=== PATIENT | male | born 1960 | race African-American/Black ===

== ENCOUNTER 2016-08-17 10:20 | Emergency (ER) | payer OTHER ==
[~2016-08-17] VITALS: Ht 182.9 cm; Wt 122.5 kg
[2016-08-17 10:29] VITALS: BP 169/105
[2016-08-17] MEDS ORDERED: TRAM-29 PO (11:14)
[2016-08-17] MEDS ORDERED: AMOX500C PO (11:14)
--- NOTE | 2016-08-17 11:14 | PHYS DOC ---
Past Medical History Past Medical History: Hypertension Past Surgical History: No Surgical History Additional Information: 1.5 PACK/DAY Alcohol Use: Occasionally Drug Use: None Adult General Chief Complaint Chief Complaint: DENTAL PROBLEM HPI HPI Patient is a 56 year old male presents emergency department stating that he has having dental pain on the left lower jaw. He states his been having this pain for the last 3 days. He denies any fever, chills or any nausea vomiting patient states he does not have a dentist and would like to have a referral sheet. Patient denies any drainage or discharge from the area. He does have swelling noted in his left lower jaw area. Review of Systems Review of Systems Constitutional: Denies fever or chills [] Eyes: Denies change in visual acuity, redness, or eye pain [] HENT: Denies nasal congestion or sore throat [] Respiratory: Denies cough or shortness of breath [] Cardiovascular: No additional information not addressed in HPI [] GI: Denies abdominal pain, nausea, vomiting, bloody stools or diarrhea [] : Denies dysuria or hematuria [] Musculoskeletal: Denies back pain or joint pain [] Integument: Denies rash or skin lesions [] Neurologic: Denies headache, focal weakness or sensory changes [] Endocrine: Denies polyuria or polydipsia [] Allergies Allergies Allergies Coded Allergies Type Severity Reaction Last Updated Verified No Known Drug Allergies 08/17/16 No Physical Exam Physical Exam Constitutional: Well developed, well nourished, no acute distress, non-toxic appearance. [] HENT: Normocephalic, atraumatic, bilateral external ears normal, oropharynx moist, no oral exudates, nose normal. Bilateral tympanic membranes appear to be normal. Patient with #18 tooth has abscess noted around the area. Eyes: PERRLA, EOMI, conjunctiva normal, no discharge. [] Neck: Normal range of motion, no tenderness, supple, no stridor. [] Cardiovascular:Heart rate regular rhythm, no murmur [] Lungs & Thorax: Bilateral breath sounds clear to auscultation [] Skin: Warm, dry, no erythema, no rash. [] Back: No tenderness Extremities: No tenderness, no cyanosis, no clubbing, ROM intact, no edema. [] Neurologic: Alert and oriented X 3, normal motor function, normal sensory function, no focal deficits noted. [] Psychologic: Affect normal, judgement normal, mood normal. [] Current Patient Data Vital Signs Vital Signs Date Time Temp Pulse Resp B/P (MAP) Pulse Ox O2 Delivery O2 Flow Rate FiO2 08/17/16 10:29 98.9 73 20 99 Room Air 98.9 EKG EKG [] Radiology/Procedures Radiology/Procedures [] Course & Med Decision Making Course & Med Decision Making Pertinent Labs and Imaging studies reviewed. (See chart for details) Dental abscess lanced with #18 needle. Patient noted with some thin yellow drainage coming from the site. Patient will be placed on amoxicillin with Ultram. Patient was instructed to follow-up with the dentist within the next week. Signs and symptoms to return back to emergency department as been provided. Patient agrees with discharge instructions treatment regimens and follow-up recommendations. Patient will be provided with Ultram in which she was state will cause drowsiness do not take any be alert and oriented. Also recommended continuing ibuprofen 800 mg every 8 hours with food. Stop taking few develop an upset stomach. [] Dragon Disclaimer Dragon Disclaimer This electronic medical record was generated, in whole or in part, using a voice recognition dictation system. Departure Departure Impression: Primary Impression: Dental abscess Disposition: 01 HOME, SELF-CARE Condition: STABLE Referrals: NON,STAFF (PCP) Patient Instructions: Dental Abscess Additional Instructions: Activity as tolerated Medication as provided Warm salt water mouth rinses 4 times a day and prior to bedtime Ultram will cause drowsiness do not take if you need to be alert and oriented Continue with ibuprofen 800 mg every 8 hours with food, stop taking if you develop upset stomach Followup with dentist within the week Return to emergency department as needed for signs and symptoms that become worse. Scripts Tramadol Hcl (ULTRAM) 50 Mg Tablet 1 TAB PO Q6HRS Y for PAIN, #15 TAB Prov: [employer] 08/17/16 Amoxicillin (AMOXICILLIN) 500 Mg Capsule 1 CAP PO QID, #40 CAP Prov: [employer] 08/17/16 [employer] August 17, 2016 11:14
[2016-08-17] MEDS ORDERED: traMADol 50 MG TABLET PO ONE (11:15)
== END 2016-08-17 11:27 | disposition home or self-care (01) ==
LOC: ER 10:40
DX: K04.7 Periapical abscess without sinus (principal); I10 Essential (primary) hypertension; F17.200 Nicotine dependence, unspecified, uncomplicated
CPT/HCPCS: 41800; 99283; 99284-25